=== PATIENT | female | born 1940 | race Caucasian/White ===

== ENCOUNTER 2017-02-14 23:21 | Emergency (ER) | payer OTHER, MEDICARE ==
[~2017-02-14] VITALS: Ht 157.5 cm; Wt 69.9 kg
[~2017-02-14 23:21] MED LIST: PRILOSEC40 MG PO
--- NOTE | 2017-02-15 00:14 | ED GI/GU/ABDOMINAL COMPLAINT ---
History of Present Illness General Chief Complaint: Abdominal Pain/Flank Pain Stated Complaint: "PER PT ABD PAIN RADIATING TO LOWER BACK,GERD" Source: patient Exam Limitations: no limitations Vital Signs & Intake/Output Vital Signs & Intake/Output Vital Signs Date Time Temp Pulse Resp B/P B/P Pulse O2 O2 Flow FiO2 Mean Ox Delivery Rate 02/15 0310 98.7 89 20 180/79 97 Room Air 02/14 2343 97.7 62 16 166/81 95 Room Air ED Intake and Output 02/15 0000 02/14 1200 Intake Total Output Total Balance Patient 154 lb Weight Weight Estimated Measurement Method Allergies Coded Allergies: Sulfa (Sulfonamide Antibiotics) (Intermediate, RASH 02/15/17) Reconcile Medications Omeprazole (Prilosec) 40 MG ECC 1 TAB PO DAILY STOMACHE ACID Triage Note: RECEIVED 76 YO FEMALE C/O MID ABDOMINAL PAIN RADIATING TO BACK X 5 HOURS. PT DENIES NAUSEA/VOMITING. NO DIARRHEA. HX GERD. Triage Nurses Notes Reviewed? yes ? N Is pt currently ? No Onset: Abrupt Duration: constant Timing: recent history Severity Numbers: 7 Location: epigastric Radiation: back Activities at Onset: eating HPI: Patient is a 76-year-old female with a past medical history of GERD where she states that she does not take medications for who presents emergency room stating that 2 days ago after eating a dinner she had acute onset of epigastric pain for 3-5 hours in which symptoms completely resolved, the following day- yesterday she had no symptoms however today again after eating dinner she had acute onset of sharp stabbing severe epigastric pain with radiation to her back and now is complaining of radiating pain to her entire abdomen. Patient did not take any medications prior to arrival. Denies any significant NSAID use or alcohol use. Last bowel movement was yesterday no blood no melena noted. Patient denies any fever, chills, chest pain arm pain jaw pain nausea vomiting dysuria hematuria. (JOHANA RICKS) Past History Travel History Traveled to [place] past 21 day No Medical History Any Pertinent Medical History? see below for history Neurological: NONE EENT: NONE Cardiovascular: NONE Respiratory: NONE Gastrointestinal: GERD Hepatic: NONE Renal: NONE Musculoskeletal: NONE Psychiatric: NONE Blood Disorders: NONE Cancer(s): NONE Surgical History Surgical History: none Psychosocial History What is your primary language Lithuanian Tobacco Use: Never used Family History Hx Contributory? No (JOHANA RICKS) Review of Systems Review of Systems Constitutional: Reports: no symptoms. EENTM: Reports: no symptoms. Respiratory: Reports: no symptoms. Cardiovascular: Reports: no symptoms. GI: Reports: see HPI. Genitourinary: Reports: no symptoms. Musculoskeletal: Reports: see HPI, back pain. Skin: Reports: no symptoms. Neurological/Psychological: Reports: no symptoms. Hematologic/Endocrine: Reports: no symptoms. Immunologic/Allergic: Reports: no symptoms. All Other Systems: Reviewed and Negative (JOHANA RICKS) Physical Exam Physical Exam General Appearance: no apparent distress, alert Gastrointestinal: normal bowel sounds, soft Comments: Well-developed well-nourished person in no acute distress HEENT: Normal EENT exam, Neck: Supple, no lymphadenopathy, normal range of motion without pain or tenderness Back: Nontender, no CVA tenderness. Cardiovascular: Regular rate and rhythms no murmurs rubs or gallops, normal JVP Respiratory: Chest nontender. No respiratory distress.breath sounds clear to auscultation bilaterally Abdomen: Moderate epigastric point tenderness and adjacent generalized mild abdominal point tenderness noted Extremity: No edema, no calf tenderness to palpation, normal and equal pulses. Neuro: Alert oriented x3, motor sensory normal, Skin: No appreciable rash on exposed skin, skin is warm and dry. Psych: Mood and affect is normal, memory and judgment is normal. Core Measures ACS in differential dx? No Severe Sepsis Present: No Septic Shock Present: No (JOHANA RICKS) Progress Differential Diagnosis: AAA, AMI, appendicitis, biliary colic, bowel obstruction , colon cancer, cholecystitis, diverticulitis, endometritis, esophageal varices, gastritis, hepatitis, hernia, ischemic bowel, inflamm bowel dis, kidney stone, ovarian cyst, ovarian torsion, pancreatitis, PID/cervicitis, peptic ulcer, PUD/ GERD, perforated viscous, SBO, UTI/pyelo Plan of Care: Orders Procedure Date/time Status TROPONIN LEVEL 02/15 15 Complete LIPASE 02/15 15 Complete COMPREHENSIVE METABOLIC PANEL 02/15 15 Complete CBC WITHOUT DIFFERENTIAL 02/15 15 Complete AMYLASE 02/15 15 Complete EKG 02/15 14 Active Laboratory Tests 02/15/17 0035: Anion Gap 12, Estimated GFR 54 L, BUN/Creatinine Ratio 31.0 H, Glucose 123 H, Calcium 10.4 H, Total Bilirubin 0.7, AST 34, ALT 32, Alkaline Phosphatase 62, Troponin I < 0.01, Total Protein 7.8, Albumin 4.7, Globulin 3.1, Albumin/ Globulin Ratio 1.5, Amylase 70, Lipase 138, CBC w Diff NO MAN DIFF REQ, RBC 4.27 , MCV 92.0, MCH 31.0, RDW 13.2, MPV 7.5, Gran % 82.1 H, Lymphocytes % 15.7 L, Monocytes % 1.9, Eosinophils % 0, Basophils % 0.3, Absolute Granulocytes 9.5 H, Absolute Lymphocytes 1.8, Absolute Monocytes 0.2, Absolute Eosinophils 0, Absolute Basophils 0, PUBS MCHC 33.6 Patient currently is in no apparent distress. EKG was unremarkable. Patient resting comfortably with eyes closed. Labs and CT scans currently pending. Discussed handoff to DR. BROWN (JOHANA RICKS) Initial ED EKG: normal p-waves, normal QRS complex, normal sinus rhythm, 59 BPM, NSR Hand-Off Endorsed To: HAYDEN BROWN DO ([facility]) Endorsed Time: 100 Pending: CT, labs (JOHANA RICKS) Departure Departure Disposition: STILL A PATIENT Condition: Stable Clinical Impression Primary Impression: Abdominal pain Referrals: SULEMA ROCA,IGNACIO Gomez (PCP/Family) Departure Forms: Customer Survey General Discharge Information (JOHANA RICKS) Departure Comments 02/15/17 3 am The patient was signed out to me by Johana Jansen. She is a 76-year-old female who had an episode of periumbilical abdominal pain that started approximately 6 hours prior to admission. No fever. No chest pain. No shortness of breath. EKG was normal. Troponin was negative. CT scan of the abdomen and pelvis are unremarkable. She has no pain now. She was discharged and will follow-up with GI on Thursday or return to the emergency department should her pain return. PA/ADDICTION COUNSELOR Co-Sign Statement Statement: ED Attending supervision documentation- [X] I saw and evaluated the patient. I have also reviewed all the pertinent lab results and diagnostic results. I agree with the findings and the plan of care as documented in the PA's/ADDICTION COUNSELOR's documentation. [] I have reviewed the ED Record and agree with the PA's/ADDICTION COUNSELOR's documentation. [] Additions or exceptions (if any) to the PAs/ADDICTION COUNSELOR's note and plan are summarized below: [] (HAYDEN BROWN DO)
[2017-02-15 00:46] LABS: ABSOLUTE BASOPHIL COUNT 0 /CUMM (0.0-0.2); ABSOLUTE EOSINOPHIL COUNT 0 /CUMM (0.0-0.7); ABSOLUTE GRANULOCYTE CT 9.5 /CUMM (1.4-6.5); ABSOLUTE LYMPH COUNT 1.8 /CUMM (1.2-3.4); ABSOLUTE MONOCYTE COUNT 0.2 /CUMM (0.10-0.60); BASOPHIL % 0.3 % (0.0-2.0); EOSINOPHIL % 0 % (0-5); GRANULOCYTE % 82.1 % (42.2-75.2); HEMATOCRIT 39.3 % (37-47); MEAN CORPUSCULAR HGB CONC 33.6 G/DL (33.0-37.0); MEAN PLATELET VOLUME 7.5 FL (7.4-10.4); PLATELET COUNT 253 /CUMM (130-400); RBC DISTRIBUTION WIDTH 13.2 % (11.5-14.5); RED BLOOD CELL CT 4.27 /CUMM (4.20-5.40); WHITE BLOOD CELL COUNT 11.6 /CUMM (4.8-10.8)
--- NOTE | 2017-02-15 02:26 | CT SCAN REPORT ---
EXAMINATION: CT ABDOMEN AND PELVIS WITH CONTRAST CLINICAL INFORMATION: 76-year-old woman with generalized abdominal pain. COMPARISON: None TECHNIQUE: Helical CT images were obtained through the abdomen and pelvis following intravenous administration of 95 mL of Optiray 320. FINDINGS: The lung bases are clear. The liver, spleen, pancreas, adrenals, kidneys, and gallbladder enhance normally and demonstrate no discrete anatomic abnormality. There is a small fat-containing umbilical hernia. There is colonic diverticulosis without evidence of acute inflammation. Large and small bowel loops are nondilated. The appendix is not clearly visualized, although there is no inflammatory stranding in the right lower quadrant to suggest acute appendicitis. The uterus, adnexal structures, and bladder are normal in appearance. IMPRESSION: No acute intra-abdominal process is appreciated to explain the patient's symptoms.
[2017-02-15 03:10] VITALS: BP 180/79
== END 2017-02-15 03:11 ==
LOC: ERH 23:21
PROVIDERS: Physician Assistant
DX: R10.13 Epigastric pain (principal)
CPT/HCPCS: 74177; 93005; 93010

== ENCOUNTER → 2017-12-11 | Day surgery (SDC) | payer OTHER, MEDICARE ==
[~2017-12-11] VITALS: Ht 157.5 cm; Wt 65.8 kg
[~2017-12-11] MED LIST changes: +COLACE100 M1 PO; +OMEPRAZOLE20 M2 PO; +PEPCID40 M1 PO; +PERCOCET 5-3251 EACH PO; +PROBIOTIC1 EACH PO; +TYLENOL EXTRA500 M2 PO
--- NOTE | 2017-12-11 14:40 | Operative Report ---
Operative/Inv Procedure Report Surgery Date: 12/11/17 Name of Procedure: cystocele repair with mesh, rectocele repair with mesh, urethral sling, cystoscopy Pre-Operative Diagnosis: cystocele grade 3, rectocele grade 3, and occult MYLES Post-Operative Diagnosis: same Estimated Blood Loss: 50ml to 100ml Surgeon/Paper Grader: Lilia Bermeo MD Anesthesia: laryngeal mask airway Implants: vaginal mesh, coloplast restorelle and Acell Complications: none Condition: stable Operative Indication: bothersome cystocele, rectocele and occult MYLES Operative/Procedure Note Note: This is a 77-year-old female with a history of cystocele rectocele and 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 She was seen in the office for evaluation and she did not wish to use pessary for management. She was given the risks benefits alternatives of pelvic organ prolapse surgery with and without vaginal mesh. The risk of occult stress urinary incontinence was also discussed. All questions were answered. This was done in the office as well as the holding area. All questions were answered. Consent was signed. Patient was taken to the operating room placed on the operating table in the supine position. Timeout was performed. IV antibiotics were infused. SCDs were placed. Patient was placed in the dorsolithotomy position and prepped and draped in the standard sterile fashion after shaving the genitalia. Yuen catheter was placed in the bladder was emptied. A Conroe retractor was placed for visualization with 6 stay hooks. 1% lidocaine was infiltrated into the anterior vaginal wall from the bladder neck to the cervix. Vaginal flaps were created and care was taken not to injure the bladder. The bladder up the cystocele is completely dissected free the retropubic space was entered from the distal portion down to the sacrospinous ligament. This was done the patient's left and right side and the spinous process was easily identified followed by the ligament. The [employer] thin Capio device was then used to place 0 Prolene sutures through the sacrospinous ligament on the patient's left and right side. Sutures were placed at the bladder neck and the arcus tendineus as well. The Restoril Coloplast mesh was then placed using the sutures that were placed at the level of the bladder neck and at the sacrospinous ligament. 2-0 Vicryl spray used to position the mesh proximally at the cervix and distally at the bladder neck. The mesh was trimmed prior to placing it. The proximal arms were folded and the Prolene suture was placed through the mesh in all 4 quadrants. He's were then tied down and the mesh was seen in good to be in good position in a tension-free manner and elevated the bladder prolapse. Methylene blue had been given at the start of the case with a total volume of 10 mL. Once the Restoril mesh was completely placed and area was copious irrigated with bacitracin irrigation the intravaginal wall was closed using running locking 2- 0 Vicryl suture locking every third suture. Stock was performed and the bladder was globally inspected. There were no abnormalities masses or trabeculation. Ureteral orifices were easily identified. The ureteral orifices were examined and excellent efflux was seen from both orifices. Attention was then turned to the sling portion of the case. 1% lidocaine was infiltrated into the anterior vaginal wall beneath the urethra. An incision was made from the distal portion of the urethra to the bladder neck. The vaginal flaps are created taking care not to injure the urethra. Metzenbaum scissors were used to reach the obturator fascia region. The Coloplast Altis sling kit was opened and the trochars provided were used to place the mini sling. The sling was easily placed and was then tightened with the Prolene suture with the DeBakey between the urethra and the sling. With a nice tension-free flat horizontal orientation. The Prolene suture was cut there was grossly irrigated with bacitracin irrigation and the incision was closed with running locking every third suture with 3-0 Vicryl. There was no mesh in the vaginal fornices cystoscopy was performed there was no mesh in the bladder or the urethra. Attention was then turned to the rectocele portion of the case. 1% lidocaine was infiltrated into the posterior vaginal wall. Careful dissection was made with the Metzenbaum scissors to create the posterior vaginal flaps. These were dissected free from the rectocele taking care not to injure the rectum. Periodic rectal exams were done. Once the rectocele was completely dissected free interrupted 2-0 Vicryl sutures were placed in the fascia defect with 2-0 Vicryl in a sequential manner proximally to distal. The Acell mesh was placed that had been soaking for 20 minutes at the start of the case. This was secured in place distally and proximally with 2-0 Vicryl suture. Internal 2-0 Vicryl sutures in the fascia were then tied down distal to proximal. This nicely reduced the rectocele. There was no longer defect when rectal was performed. The posterior vaginal wall was then closed with interrupted 2-0 Vicryl sutures. Sponge and needle count were correct the end of the case. Patient tolerated procedure well. Bladder was emptied. This is the end of dictation on patient Brianna Hines. Findings: No mesh in bladder, urethra, or vaginal fornices. Normal bladder anatomy with easily identified ureteral orifices. Excellent efflux from the ureteral orifices were seen with the methylene blue. Discharge Disposition: PACU
== END ==
LOC: STS 01:04
DX: N81.10 Cystocele, unspecified (principal); N81.6 Rectocele; N39.46 Mixed incontinence
CPT/HCPCS: C1771; C1781; J0131; J0690; J2250; Q9968